=== PATIENT | female | born 1985 | race Two or more races ===

== ENCOUNTER 2018-03-08 20:52 | Emergency (ER) | payer MEDICAID ==
[~2018-03-08] VITALS: Ht 162.6 cm; Wt 90.7 kg
[2018-03-08 20:55] VITALS: BP 143/86
[2018-03-08] MEDS ORDERED: IBUPROFEN600 MG ORAL (20:57)
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
[2018-03-08] MEDS ORDERED: Norco 5mg/325mg tab ORAL ONE (21:00)
[2018-03-08 21:32] VITALS: BP 143/86
--- NOTE | 2018-03-09 09:23 | Diagnostic Imaging Report ---
Indication: Neck Pain Findings: 5 views of the cervical spine were obtained. There is no acute fracture identified. Alignment is normal. Foramina appear widely patent bilaterally. The open-mouth odontoid view shows an intact dens and good alignment of the lateral masses with respect to the body of C2. There is no soft tissue swelling. Impression: Negative cervical spine examination.
== END 2018-03-08 21:32 | disposition home or self-care (01) ==
LOC: EDBD 20:52 → EMR 21:10
DX: S16.1XXA Strain of muscle, fascia and tendon at neck level, initial encounter (principal); V43.52XA Car driver injured in collision with other type car in traffic accident, initial encounter; Y92.410 Unspecified street and highway as the place of occurrence of the external cause
CPT/HCPCS: 72052; 99283